=== PATIENT | male | born 1980 | race African-American/Black ===

== ENCOUNTER 2020-06-25 10:21 | Emergency (ER) | payer BC, OTHER ==
[~2020-06-25] VITALS: Ht 177.8 cm; Wt 95.3 kg
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
--- NOTE | 2020-06-25 11:14 | NUR ---
PT TO CT VIA [facility]
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
--- NOTE | 2020-06-25 11:57 | NUR ---
IV PLACED, VICE PRESIDENT OF MARKETING PLACED. PT WILL GO TO MRI SHORTLY. CALL LIGHT WITHIN REACH.
[2020-06-25 12:00] LABS: BASOPHILS % (AUTO) 2 % (0-1); EOSINOPHILS % (AUTO) 2 % (1-7); LYMPHOCYTES % (AUTO) 28 % (22-44); MEAN CORPUSCULAR HEMOGLOBIN 29.5 pg (27.5-34.5); MEAN CORPUSCULAR HGB CONC 33.5 g/dL (33.2-36.2); MONOCYTES % (AUTO) 12 % (2-9); NEUTROPHILS % (AUTO) 57 % (42-75); PLATELET COUNT 231 x10^3/uL (130-400); RED BLOOD COUNT 5.13 x10^6/uL (4.38-5.82); RED CELL DISTRIBUTION WIDTH 13.6 % (9.4-14.8)
[2020-06-25] MEDS ORDERED: SODIUM CHLORIDE FLUSH 10ML SYR IVF ONE (12:00)
[2020-06-25 12:02] LABS: MD NO
--- NOTE | 2020-06-25 12:13 | NUR ---
PT TO MRI VIA [facility]
--- NOTE | 2020-06-25 12:46 | NUR ---
pt went to MRI and became claustrophobic, declined all scans and medications. Provider notified.
[2020-06-25 12:57] LABS: ALBUMIN 3.3 g/dL (3.4-5.0); ANION GAP 4 mmol/L (5-15); CALCIUM 8.4 mg/dL (8.5-10.1); CHLORIDE 107 mmol/L (98-107); CREATININE 1.05 mg/dL (0.7-1.3)
[2020-06-25] MEDS ORDERED: LORazepam 2 MG/ML, 1ML IVPush ONE (13:00)
--- NOTE | 2020-06-25 13:01 | NUR ---
REPORT FROM TARAS GOLDEN.
--- NOTE | 2020-06-25 13:13 | NUR ---
PT REFUSING MEDS AND IMAGING AT THIS TIME. AWAITING MD TO SEE PT TO DISCUSS POC.
[2020-06-25 13:43] VITALS: BP 140/85
== END 2020-06-25 13:46 | disposition home or self-care (01) ==
LOC: ED 10:53
DX: S06.0X0A Concussion without loss of consciousness, initial encounter (principal); F17.210 Nicotine dependence, cigarettes, uncomplicated; R94.31 Abnormal electrocardiogram [ECG] [EKG]; Y04.8XXA Assault by other bodily force, initial encounter; Y93.89 Activity, other specified; Y92.89 Other specified places as the place of occurrence of the external cause; Y99.8 Other external cause status
CPT/HCPCS: 36415; 70450; 70486; 80047; 80048; 82040; 85025; 93005; 99285